=== PATIENT | male | born 1980 | race Caucasian/White ===

== ENCOUNTER 2016-11-15 08:38 | Day surgery (SDC) | payer OTHER ==
[~2016-11-15] VITALS: Ht 185.4 cm; Wt 91.8 kg
[2016-11-15] VITALS (7 sets, daily range): BP systolic 100–121; BP diastolic 63–78; PULSE 54–69; TEMP 97.6–98.2
[2016-11-15] MEDS ORDERED: NEXIUM24HROTC PO (09:17)
== END 2016-11-15 11:00 | disposition home or self-care (01) ==
LOC: SDCO 08:38
DX: K21.9 Gastro-esophageal reflux disease without esophagitis (principal); K44.0 Diaphragmatic hernia with obstruction, without gangrene
CPT/HCPCS: J2250; J3010; J7030